=== PATIENT | male | born 1945 | race Caucasian/White ===

== ENCOUNTER 2016-10-17 13:26 | Inpatient (IN) | payer OTHER, MEDICARE ==
[2016-10-17] VITALS (7 sets, daily range): BP systolic 110–138; BP diastolic 62–80; PULSE 90–123; RESP 13–20; TEMP 97.8–99.8; O2SAT 95–100
[~2016-10-17 13:26] MED LIST: ALBU.63PRN NEB; CHLO50TA PO; CLON.1 PO; FOLI1 PO; GABA300C3 PO; GLIP10 PO; HYDR-3580 PO; LEVA1.25 IN; LISI-360 PO; NOVOLOGSS SQ; OCTR100I SQ; PROT40TA PO; SCOP1PAT TD; SERT-132 OR; SIMV20TA OR; TAB-TAB PO
--- NOTE | 2016-10-17 13:46 | PD ---
Physical Exam Date Seen by Provider: Oct 17, 2016 Time Seen by Provider: 13:44 Data Data Last Documented VS Vital Signs Date Time Temp Pulse Resp B/P Pulse Ox O2 Delivery O2 Flow Rate FiO2 10/17/16 13:28 97.8 123 13 110/71 98 MDM Supervised Visit with JOLYNN: No Narrative Course 71 YO M with complaint of RLQ pain since 4am. +N/V x "a few days." --F/C. History of Shannan fundoplication. Vitals reviewed. Seen in triage, awaiting bed placement. Ebony Modi Oct 17, 2016 13:46
[2016-10-17] MEDS ORDERED: ONDANSETRON HCL 4 MG/2 ML VIAL ONE ×2 (14:28→18:34)
[2016-10-17] MEDS ORDERED: SODIUM CHLOR 0.9% 1000 ML INJ 1,000 ML IV SCH ×3 (14:46→23:45)
[2016-10-17] MEDS ORDERED: SODIUM CHLORIDE 0.9% FLUSH 10 ML FLUSH IV FLUSH PRN ×2 (15:00→19:45)
[2016-10-17] MEDS ORDERED: PIPERACIL-TAZO 3.375 GM PREMIX 50 ML IV ONE (15:00)
[2016-10-17] MEDS ORDERED: HYDROmorphone HCL PF 1 MG/ML VIAL IV PUSH ONE (15:00)
[2016-10-17 15:23] LABS: AUTOMATED NEUTROPHIL # 8.8 TH/MM3 (1.8-7.7); BASOPHIL # 0.1 TH/MM3 (0-0.2); BASOPHIL % 0.6 % (0.0-2.0); EOSINOPHIL % 0.5 % (0.0-4.0); HEMATOCRIT 40.5 % (39.0-51.0); HEMO FLAGS DIFF FINAL; LYMPHOCYTE # 0.5 TH/MM3 (1.0-4.8); MONO % 3.4 % (0.0-8.0); NEUT % 90.5 % (16.0-70.0); PLATELET COUNT 325 TH/MM3 (150-450); RED BLOOD COUNT 4.61 MIL/MM3 (4.50-5.90); RED CELL DISTRIBUTION WIDTH 14.3 % (11.6-17.2); WHITE BLOOD COUNT 9.7 TH/MM3 (4.0-11.0)
[2016-10-17] MEDS ORDERED: MAPA325T PO (15:24)
[2016-10-17] MEDS ORDERED: GABA600T PO (15:24)
[2016-10-17] MEDS ORDERED: CHLO25TA2 PO (15:31)
[2016-10-17] MEDS ORDERED: METF500T PO (15:31)
[2016-10-17] MEDS ORDERED: NOVONP2 SQ (15:31)
[2016-10-17] MEDS ORDERED: MULT-244 PO (15:31)
[2016-10-17] MEDS ORDERED: SIMV20TA PO (15:31)
[2016-10-17] MEDS ORDERED: FOLI1TAB6 P-ARTICULR (15:31)
[2016-10-17] MEDS ORDERED: IBUP200T2 PO (15:31)
[2016-10-17] MEDS ORDERED: GLIP10TA6 PO (15:31)
[2016-10-17] MEDS ORDERED: ZOLO50TA PO (15:31)
[2016-10-17] MEDS ORDERED: PANT40TA3 PO (15:31)
[2016-10-17] MEDS ORDERED: TRAM50TA PO (15:31)
[2016-10-17] MEDS ORDERED: LISI10TA3 PO (15:31)
[2016-10-17 15:43] LABS: ALT (GPT) 44 U/L (12-78); ANION GAP 10 MEQ/L (5-15); AST (GOT) 24 U/L (15-37); BICARBONATE 23.6 MEQ/L (21.0-32.0); BLOOD UREA NITROGEN 35 MG/DL (7-18); CHLORIDE 102 MEQ/L (98-107); GLOMERULAR FILTRATION RATE 47 ML/MIN (>89); POTASSIUM 4.4 MEQ/L (3.5-5.1); SODIUM (NA) 136 MEQ/L (136-145)
[2016-10-17 15:46] LABS: ALKALINE PHOSPHATASE 107 U/L (45-117); TOTAL BILIRUBIN ADULT 0.5 MG/DL (0.2-1.0)
[2016-10-17] MEDS ORDERED: IOHEXOL 350 MG/ML 10 ML VIAL (for RAD DIAG) IV ONE (16:22)
[2016-10-17 16:32] LABS: BLOOD, URINE NEG (NEG); COMMENT (UR) CULT NOT INDICATED; CULTURE IF INDICATED CULT NOT INDICATED; GLUCOSE,URINE NEG (NEG); KETONE, URINE 10 mg/dL (NEG); NITRITE,URINE NEG (NEG); URINE COLOR YELLOW (YELLW/STRAW)
--- NOTE | 2016-10-17 17:19 | RADRPT ---
EXAM DATE/TIME: 10/17/2016 16:15 [facility] COMPARISON: CT ABDOMEN & PELVIS W CONTRAST, May 27, 2015, 6:15. CT ABDOMEN & PELVIS W/O CONTRAST, November 28, 2015, 12:51. CT ABDOMEN & PELVIS W CONTRAST, October 28, 2015, 16:55. INDICATIONS : Right side abdominal pain. IV CONTRAST: 96 cc Omnipaque 350 (iohexol) IV ORAL CONTRAST: No oral contrast ingested. RADIATION DOSE: 8.94 CTDIvol (mGy) MEDICAL HISTORY : Cardiovascular disease. Hypertension. Hernia, hiatal. SURGICAL HISTORY : Colostomy with revision, sigmoid colon removed ENCOUNTER: Initial ACUITY: 1 day PAIN SCALE: 6/10 LOCATION: Right abdomen TECHNIQUE: Volumetric scanning of the abdomen and pelvis was performed. Using automated exposure control and adjustment of the mA and/or kV according to patient size, radiation dose was kept as low as reasonably achievable to obtain optimal diagnostic quality images. FINDINGS: There does appear to be some increased density seen in the left midabdomen around sever al segments of small bowel. Some small bowel wall thickening may be present in this region. An absces s or focal fluid collection is not seen. There is a mild hiatal hernia. There is a prominent 4 cm duodenal diverticulum. The liver, spleen, p ancreas and adrenal glands are grossly normal. Both kidneys demonstrate normal enhancement. There i s a 2.3 cm mass at the lateral mid right kidney. This appears mildly larger when compared to the michael or exam. On the prior exam it measured 2 cm in diameter. It does measure 40 Hounsfield units which i s too dense for a simple cyst. No other possible renal masses are seen. There is no hydronephrosis. Atherosclerotic calcifications are seen throughout the arterial system. No aneurysm is seen. The pelvic structures appear grossly intact. There is a bowel anastomosis suture seen at the upper r ectum. There is a mild right pleural effusion. There is some accompanying subpleural increased paren chymal densities seen at the right lower lobe likely related to atelectasis or consolidation. There is some minimal increased density at the medial left base. There is degenerative change in the lumba r spine. There does appear to be fusion at the sacroiliac joints. There is prominent degenerative ch sivakumar at the left hip joint. CONCLUSION: 1. Suspected mild inflammatory change in the left midabdomen with some thickening of small bowel segm ents in this region concerning for enteritis. 2. 2.3 cm mass seen at the lateral mid right kidney. This either represents a complex cyst or potent ially a solid mass. It does appear slightly larger on the current exam. Urology consultation would b e recommended at some point. 3. Mild right pleural effusion with accompanying area of atelectasis or consolidation at the right ba se. 4. Fusion at the sacroiliac joints. 5. Degenerative change at the left hip joint. There is some milder degenerative change at the lumbar spine. 6. Mild hiatal hernia. Rambo Montemayor MD on October 17, 2016 at 16:57 Board Certified Radiologist. This report was verified electronically.
[2016-10-17] MEDS ORDERED: CIPROFLOXACIN 500 MG TAB PO ONE (17:45)
[2016-10-17] MEDS ORDERED: traMADol HCL 50 MG TAB PO ONE (17:45)
[2016-10-17] MEDS ORDERED: metroNIDAZOLE 500 MG TAB PO ONE (17:45)
[2016-10-17] MEDS ORDERED: CIPR500T2 PO (17:50)
[2016-10-17] MEDS ORDERED: METR-1 PO (17:50)
--- NOTE | 2016-10-17 17:50 | PD ---
HPI Chief Complaint: Abdominal Pain Time Seen by Provider: 14:34 Travel History International Travel<30 days: No Contact w/Intl Traveler<30days: No Traveled to known affect area: No History of Present Illness HPI This is a 71-year-old male who has a history of a Shannan fundoplication which was complicated by multiple abscesses and bowel obstructions, coming in today with right sided abdominal discomfort. He says the abdominal discomfort which started today, constant, moderate severity feeling like a fullness inside his abdomen. He has felt nauseous and threw up once this morning. He denies any loose stools. He is very worried that his abscess may have come back. PFSH Past Medical History Blood Disorders: No Anxiety: No Depression: Yes Cancer: No Cardiovascular Problems: Yes High Cholesterol: Yes Diabetes: Yes Patient Takes Glucophage: Yes Diminished Hearing: No Gastrointestinal Disorders: Yes (TAKES IMMODIUM FOR CHRONIC DIARRHEA) GERD: Yes Genitourinary: Yes Hypertension: Yes Immune Disorder: No Kidney Stones: Yes Musculoskeletal: No Neurologic: No Psychiatric: No Reproductive: No Respiratory: No Immunizations Current: No Past Surgical History Abdominal Surgery: Yes (SIGMOID COLON REMOVED W/ COLOSTOMY AND REVISION OF COLOSTOMY, 2006) Cardiac Surgery: No Ear Surgery: No Endocrine Surgery: No Eye Surgery: No Gynecologic Surgery: No Oral Surgery: No Other Surgery: Yes (barretts esopagus with hiatal hernia) Social History Alcohol Use: No ( ) Tobacco Use: No (VAPOR) Substance Use: No Allergies-Medications (Allergen,Severity, Reaction): Coded Allergies: No Known Allergies (Verified , 10/28/15) Reported Meds & Prescriptions Reported Meds & Active Scripts Active Reported Chlorthalidone 25 Mg Tab 25 Mg PO DAILY Folic Acid 1 Mg Tablet 1 Mg P-ARTICULR DAILY Glipizide 10 Mg Tab 10 Mg PO BIDAC Take 30 minutes before a meal Novolin N Inj (Insulin Human NPH) 1,000 Unit/10 Ml Vial 28 Units SQ HS Lisinopril 10 Mg Tab 10 Mg PO DAILY Pantoprazole (Pantoprazole Sodium) 40 Mg Tab 40 Mg PO BID Zoloft (Sertraline HCl) 50 Mg Tab 50 Mg PO DAILY Simvastatin 20 Mg Tab 20 Mg PO HS Metformin (Metformin HCl) 500 Mg Tab 250 Mg PO BIDPC With meals Tramadol (Tramadol HCl) 50 Mg Tab 50 Mg PO TID PRN Spectravite Senior (Multivit with Iron-Minerals) 1 Each Tablet 1 Tab PO DAILY Ibuprofen 200 Mg Tab 400 Mg PO BID PRN Gabapentin 600 Mg Tab 600 Mg PO BID Mapap (Acetaminophen) 325 Mg Tab 650 Mg PO BID Review of Systems Except as stated in HPI: all other systems reviewed are Neg Physical Exam Narrative GENERAL:Well appearing, no acute distress SKIN: Focused skin assessment warm and dry. HEAD: Atraumatic. Normocephalic. EYES: Pupils equal and round. No injection or drainage. ENT: Dry mucous members. NECK: Trachea midline. CARDIOVASCULAR: Regular rate and rhythm. No murmur appreciated. RESPIRATORY: Clear to auscultation. Breath sounds equal bilaterally. GASTROINTESTINAL: Abdomen soft, non-tender, nondistended. MUSCULOSKELETAL: No obvious deformities. NEUROLOGICAL: Awake and alert. No obvious cranial nerve deficits. Moving all extremities. PSYCHIATRIC: Appropriate mood and affect; insight and judgment normal. Data Data Last Documented VS Vital Signs Date Time Temp Pulse Resp B/P Pulse Ox O2 Delivery O2 Flow Rate FiO2 10/17/16 16:37 99.6 107 20 117/62 96 10/17/16 15:18 Room Air Orders Ondansetron Inj (Zofran Inj) (10/17/16 14:28) Complete Blood Count With Diff (10/17/16 14:46) Comprehensive Metabolic Panel (10/17/16 14:46) Lipase (10/17/16 14:46) Urinalysis - C+S If Indicated (10/17/16 14:46) Ct Abd/Pel W Iv Contrast(Rout) (10/17/16 14:46) Iv Access Insert/Monitor (10/17/16 14:46) Ecg Monitoring (10/17/16 14:46) Oximetry (10/17/16 14:46) Sodium Chlor 0.9% 1000 Ml Inj (Ns 1000 M (10/17/16 14:46) Sodium Chloride 0.9% Flush (Ns Flush) (10/17/16 15:00) Piperacil-Tazo 3.375 Gm Premix (Zosyn 3. (10/17/16 15:00) Blood Culture (10/17/16 14:46) Lactic Acid (10/17/16 14:46) Hydromorphone Pf Inj (Dilaudid Pf Inj) (10/17/16 15:00) Electrocardiogram (10/17/16 ) Iohexol 350 Inj (Omnipaque 350 Inj) (10/17/16 16:22) Chest, Single Ap (10/17/16 ) Ns (Bolus) Inj (10/17/16 17:45) Tramadol (Ultram) (10/17/16 17:45) Ciprofloxacin (Cipro) (10/17/16 17:45) Metronidazole (Flagyl) (10/17/16 17:45) Labs Laboratory Tests Test 10/17/16 10/17/16 15:06 15:55 White Blood Count 9.7 TH/MM3 Red Blood Count 4.61 MIL/MM3 Hemoglobin 13.4 GM/DL Hematocrit 40.5 % Mean Corpuscular Volume 88.0 FL Mean Corpuscular Hemoglobin 29.0 PG Mean Corpuscular Hemoglobin 33.0 % Concent Red Cell Distribution Width 14.3 % Platelet Count 325 TH/MM3 Mean Platelet Volume 9.7 FL Neutrophils (%) (Auto) 90.5 % Lymphocytes (%) (Auto) 5.0 % Monocytes (%) (Auto) 3.4 % Eosinophils (%) (Auto) 0.5 % Basophils (%) (Auto) 0.6 % Neutrophils # (Auto) 8.8 TH/MM3 Lymphocytes # (Auto) 0.5 TH/MM3 Monocytes # (Auto) 0.3 TH/MM3 Eosinophils # (Auto) 0.0 TH/MM3 Basophils # (Auto) 0.1 TH/MM3 CBC Comment DIFF FINAL Differential Comment Sodium Level 136 MEQ/L Potassium Level 4.4 MEQ/L Chloride Level 102 MEQ/L Carbon Dioxide Level 23.6 MEQ/L Anion Gap 10 MEQ/L Blood Urea Nitrogen 35 MG/DL Creatinine 1.48 MG/DL Estimat Glomerular Filtration 47 ML/MIN Rate Random Glucose 163 MG/DL Lactic Acid Level 1.0 mmol/L Calcium Level 8.8 MG/DL Total Bilirubin 0.5 MG/DL Aspartate Amino Transf 24 U/L (AST/SGOT) Alanine Aminotransferase 44 U/L (ALT/SGPT) Alkaline Phosphatase 107 U/L Total Protein 7.5 GM/DL Albumin 3.6 GM/DL Lipase 128 U/L Urine Color YELLOW Urine Turbidity CLEAR Urine pH 5.0 Urine Specific [place] 1.025 Urine Protein NEG mg/dL Urine Glucose (UA) NEG mg/dL Urine Ketones 10 mg/dL Urine Occult Blood NEG Urine Nitrite NEG Urine Bilirubin NEG Urine Urobilinogen LESS THAN 2.0 MG/DL Urine Leukocyte Esterase NEG Urine RBC 1 /hpf Urine WBC 2 /hpf Microscopic Urinalysis Comment CULT NOT INDICATED MDM Medical Decision Making Medical Screen Exam Complete: Yes Emergency Medical Condition: Yes Interpretation(s) Afebrile, mild tachycardia, normotensive No leukocytosis 90% neutrophils Renal insufficiency is slightly worse than prior CT abdomen and pelvis: Mild inflammatory change in the left mid abdomen 2.3 cm mass in the lateral right mid kidney Differential Diagnosis Abscess, bowel obstruction, appendicitis, colitis, dehydration Narrative Course This is a 71-year-old male who has a, located surgical history who presents to the emergency department reporting abdominal discomfort and vomiting for one day. On exam he appears dehydrated. Labs were obtained which demonstrate a 90 % neutrophil shift, and some renal insufficiency worse then discharged when he was in the hospital. He was given 2 L of IV hydration, cultures were obtained and he was given a dose of Zosyn. CT abdomen and pelvis is fairly unremarkable only with some mild enteritis. I had a long conversation with the family. They would like to go home although I did offer them observation for continued IV hydration. I think this is reasonable. They seem reliable and will come back if he feels worse. Patient will be discharged on ciprofloxacin and Flagyl. Diagnosis Primary Impression: Enteritis Patient Instructions: General Instructions Additional Instructions: If you develop severe or worsening abdominal pain, fever>100.4, persistent vomiting or inability to eat or drink return to the emergency department immediately. Follow up with your primary care physician in 1-2 days for a check-up. Med/Other Pt SpecificInfo: Prescription(s) given Scripts Metronidazole (Flagyl)500 Mg [id number] Mg PO BID 10 Days Prov:Kerrie Weaver MD 10/17/16 Ciprofloxacin 500 Mg [id number] Mg PO BID 10 Days Prov:Kerrie Weaver MD 10/17/16 Disposition: 01 DISCHARGE HOME Condition: Stable Kerrie Weaver MD Oct 17, 2016 17:50
--- NOTE | 2016-10-17 18:01 | RADRPT ---
EXAM DATE/TIME: 10/17/2016 16:55 [facility] COMPARISON: CHEST SINGLE AP, October 28, 2015, 19:04. INDICATIONS : Short of breath. MEDICAL HISTORY : Diabetes mellitus type II. Hypertension SURGICAL HISTORY : None. ENCOUNTER: Initial ACUITY: 1 day PAIN SCORE: 0/10 LOCATION: Bilateral chest FINDINGS: Heart size is normal. There is some minimal hazy density seen at the right base. The left lung is gr ossly clear. Significant effusion is not seen. CONCLUSION: Minimal hazy density identified at the right lateral base likely related to some mild atelectasis or consolidation. Rambo Montemayor MD on October 17, 2016 at 17:51 Board Certified Radiologist. This report was verified electronically.
[2016-10-17] MEDS ORDERED: ONDANSETRON HCL 4 MG/2 ML VIAL IV ONE (18:45)
[2016-10-17] MEDS ORDERED: ONDANSETRON HCL 4 MG/2 ML VIAL IVP PRN (19:45)
[2016-10-17] MEDS ORDERED: NALOXONE HCL 0.4 MG/ML AMP IV PRN (19:45)
[2016-10-17] MEDS ORDERED: MORPHINE SULFATE 4 MG/ML INJ IV PUSH PRN ×2 (20:45→23:45)
[2016-10-17] MEDS ORDERED: PRAVASTATIN SOD 40 MG TAB PO SCH (21:00)
[2016-10-17] MEDS: PANTOPRAZOLE SOD 40 MG DELAYED RELEASE TAB PO SCH (21:18)
[2016-10-17] MEDS: SODIUM CHLORIDE 0.9% FLUSH 10 ML FLUSH IV FLUSH SCH (21:18)
--- NOTE | 2016-10-17 23:23 | HHI.HP ---
[facility] Ad[facility] Diagnosis enteritis Diagnoses: Chief Complaint: abdominal pain Travel History International Travel<30 Days: No Contact w/Intl Traveler <30 Da: No Traveled to Known Affected Are: No History of Present Illness Written by Jena Thomason, acting as scribe for Dr. Cevallos on 10/17/16 at 23: 23. There is a pleasant 71-year-old male patient with past medical history which includes diabetes mellitus, hypertension, GERD, Moore's esophagitis.status, CHF and atrial fibrillation Patient has had a surgical history which includes Shannan fundoplication for treatment of GERD which was complicated by multiple abscesses and bowel obstructions. Patient presents to the emergency department today with complaints of abdominal pain which started 4 AM 10/17/2016. Patient reports the abdominal pain is located in the right primarily in the right proximal lower quadrant describes the pain as constant reports it was moderate severity at worst and is currently more of a mild discomfort. Patient describes the pain as a sensation of fullness inside the abdomen. Patient vomited once at home and on second time in the emergency department. Patient reports the vomitus material it's brown in color denies coffee-ground emesis or bright red blood present and emesis. He denies any loose stools, fevers, chills , SOB,chest pain, syncope, dizziness or dysuria. Review of Systems Except as stated in HPI: all other systems reviewed are Neg Past Family Social History Past Medical History Diabetes mellitus Depression GERD CHF A. fib Moore's esophagus Past Surgical History Shannan fundoplication Recent thoracentesis Multiple bowel perforation repairs Colostomy with reversal Exploratory lap, for [id number] years ago Removal of sigmoid colon Reported Medications Chlorthalidone 25 Mg Tab 25 Mg PO DAILY Folic Acid 1 Mg Tablet 1 Mg P-ARTICULR DAILY Glipizide 10 Mg Tab 10 Mg PO BIDAC Take 30 minutes before a meal Novolin N Inj (Insulin Human NPH) 1,000 Unit/10 Ml Vial 28 Units SQ HS Lisinopril 10 Mg Tab 10 Mg PO DAILY Pantoprazole (Pantoprazole Sodium) 40 Mg Tab 40 Mg PO BID Zoloft (Sertraline HCl) 50 Mg Tab 50 Mg PO DAILY Simvastatin 20 Mg Tab 20 Mg PO HS Metformin (Metformin HCl) 500 Mg Tab 250 Mg PO BIDPC With meals Tramadol (Tramadol HCl) 50 Mg Tab 50 Mg PO TID PRN Spectravite Senior (Multivit with Iron-Minerals) 1 Each Tablet 1 Tab PO DAILY Ibuprofen 200 Mg Tab 400 Mg PO BID PRN Gabapentin 600 Mg Tab 600 Mg PO BID Mapap (Acetaminophen) 325 Mg Tab 650 Mg PO BID Allergies: Coded Allergies: No Known Allergies (Verified , 10/28/15) Active Ordered Medications Current Medications Medications (Trade) Dose Ordered Sig/Irene Route Start Time Stop Time Status Last Admin (NS Flush) 2 ml UNSCH PRN IV FLUSH 10/17/16 19:45 (NS Flush) 2 ml BID IV FLUSH 10/17/16 21:00 (Zofran Inj) 4 mg Q6H PRN IVP 10/17/16 19:45 Naloxone HCl 0.4 mg 0.4 mg UNSCH PRN IV 10/17/16 19:45 Ciprofloxacin/ Dextrose 200 ml @ 200 mls/hr Q12H IV 10/18/16 06:00 (Flagyl 500 Mg Inj) 100 ml @ 100 mls/hr Q6H IV 10/18/16 00:00 (Protonix) 40 mg BID PO 10/17/16 21:00 (Pravachol) 40 mg HS PO 10/17/16 21:00 (Morphine Inj) 2 mg Q3H PRN IV PUSH 10/17/16 20:45 10/17/16 20:43 Family History Family history negative for heart disease, diabetes, CVA and cancer Social History denies ETOH use or illicit drug use denies tobacco use reports he uses vaporizer with no nicotine Physical Exam Vital Signs Vital Signs Date Time Temp Pulse Resp B/P Pulse Ox O2 Delivery O2 Flow Rate FiO2 10/17/16 21:35 106 10/17/16 20:55 99.1 109 17 138/70 95 10/17/16 20:23 99.4 90 18 135/80 100 Room Air 10/17/16 18:46 99.8 110 20 134/69 98 Room Air 10/17/16 16:37 99.6 107 20 117/62 96 10/17/16 15:18 110 20 111/62 96 Room Air 10/17/16 13:28 97.8 123 13 110/71 98 Physical Exam GENERAL: This is a well-nourished, well-developed patient, in no apparent distress. SKIN: No rashes, ecchymoses or lesions. Cool and dry. HEAD: Atraumatic. Normocephalic. No temporal or scalp tenderness. EYES: Extraocular motions intact. No scleral icterus. No injection or drainage. CARDIOVASCULAR: Regular rate and rhythm without murmurs, gallops, or rubs. RESPIRATORY: Clear to auscultation. Breath sounds equal bilaterally. No wheezes , rales, or rhonchi. GASTROINTESTINAL: Abdomen soft, tender to palpation worse RLQ, slight distended. MUSCULOSKELETAL: Extremities without clubbing, cyanosis, or edema. No joint tenderness, effusion, or edema noted. No calf tenderness. Negative Homans sign bilaterally. NEUROLOGICAL: Awake and alert. no focal deficits. Motor and sensory grossly within normal limits. Five out of 5 muscle strength in all muscle groups. Normal speech. Laboratory Laboratory Tests Test 10/17/16 10/17/16 15:06 15:55 White Blood Count 9.7 Red Blood Count 4.61 Hemoglobin 13.4 Hematocrit 40.5 Mean Corpuscular Volume 88.0 Mean Corpuscular Hemoglobin 29.0 Mean Corpuscular Hemoglobin 33.0 Concent Red Cell Distribution Width 14.3 Platelet Count 325 Mean Platelet Volume 9.7 Neutrophils (%) (Auto) 90.5 Lymphocytes (%) (Auto) 5.0 Monocytes (%) (Auto) 3.4 Eosinophils (%) (Auto) 0.5 Basophils (%) (Auto) 0.6 Neutrophils # (Auto) 8.8 Lymphocytes # (Auto) 0.5 Monocytes # (Auto) 0.3 Eosinophils # (Auto) 0.0 Basophils # (Auto) 0.1 CBC Comment DIFF FINAL Differential Comment Sodium Level 136 Potassium Level 4.4 Chloride Level 102 Carbon Dioxide Level 23.6 Anion Gap 10 Blood Urea Nitrogen 35 Creatinine 1.48 Estimat Glomerular Filtration 47 Rate Random Glucose 163 Lactic Acid Level 1.0 Calcium Level 8.8 Total Bilirubin 0.5 Aspartate Amino Transf 24 (AST/SGOT) Alanine Aminotransferase 44 (ALT/SGPT) Alkaline Phosphatase 107 Total Protein 7.5 Albumin 3.6 Lipase 128 Urine Color YELLOW Urine Turbidity CLEAR Urine pH 5.0 Urine Specific [place] 1.025 Urine Protein NEG Urine Glucose (UA) NEG Urine Ketones 10 Urine Occult Blood NEG Urine Nitrite NEG Urine Bilirubin NEG Urine Urobilinogen LESS THAN 2.0 Urine Leukocyte Esterase NEG Urine RBC 1 Urine WBC 2 Microscopic Urinalysis Comment CULT NOT INDICATED Date/Time Procedure Status Source Growth 10/17/16 15:06 Aerobic Blood Culture Received Blood Peripheral Pending 10/17/16 15:06 Anaerobic Blood Culture Received Blood Peripheral Pending Result Diagram: 10/17/16 1506 10/17/16 1506 Assessment and Plan Problem List: (1) Enteritis ICD Code: K52.9 Status: Acute (2) Kidney mass ICD Code: N28.89 Status: Acute Assessment and Plan Enteritis Abdominal pain with nausea and vomiting Unable to tolerate by mouth intake CT abdomen and pelvis with IV contrast reviewed and reveals one of suspected mild inflammatory change in the left mid abdomen and with some thickening of small bowel segments in this region concerning for enteritis. 2.3 cm mass seen at the lateral mid right kidney either represents a complex cyst or potentially a solid mass. 3 mild right pleural effusion with a common pain area of atelectasis or consolidation at the right base. supportive care IV fluid Zofran as needed for N/V Given Zosyn IV x 1 in ER Cipro and Flagyl IV- patient unable to tolerate PO Morphine IV as needed for pain Kidney mass CT abdomen and pelvis with IV contrast reviewed and reveals one of suspected mild inflammatory change in the left mid abdomen and with some thickening of small bowel segments in this region concerning for enteritis. 2.3 cm mass seen at the lateral mid right kidney either represents a complex cyst or potentially a solid mass. 3 mild right pleural effusion with a common pain area of atelectasis or consolidation at the right base. [facility]- [facility] hold oral diabetic medication accu checks ACHS with SSI HTN- chronic continue home medication with hold parameters DVT prophylaxis with SCDs discussed with ER provider, nursing and patient Physician Certification 2 Midnight Certification Type: Admission for Inpatient Services Order for Inpatient Services The services are ordered in accordance with Medicare regulations or non- Medicare payer requirements, as applicable. In the case of services not specified as inpatient-only, they are appropriately provided as inpatient services in accordance with the 2-midnight benchmark. Estimated LOS (days): 3 days is the estimated time the patient will need to remain in the hospital, assuming treatment plan goals are met and no additional complications. Post-Hospital Plan: Home Jena Thomason Oct 17, 2016 23:23
[2016-10-18] MEDS: metroNIDAZOLE 500 MG INJ 100 ML IV SCH ×2 (00:17→05:26)
[2016-10-18] MEDS ORDERED: DEXTROSE 50% IN WATER 50 ML VIAL(D50) IV PRN (00:30)
[2016-10-18] MEDS ORDERED: GLUCAGON 1 MG/ML VIAL OTHER PRN (00:30)
[2016-10-18 01:30] VITALS: BP 133/62; PULSE 99; RESP 16; TEMP 97.7; O2SAT 94
[2016-10-18 04:00] VITALS: BP 144/72; PULSE 86; RESP 16; TEMP 96.7; O2SAT 95
[2016-10-18] MEDS ORDERED: CIPROFLOXACIN 400 MG PREMIX 200 ML IV SCH (06:00)
[2016-10-18 06:38] LABS: ALKALINE PHOSPHATASE 80 U/L (45-117); ALT (GPT) 29 U/L (12-78); ANION GAP 10 MEQ/L (5-15); AST (GOT) 12 U/L (15-37); BICARBONATE 22.1 MEQ/L (21.0-32.0); BLOOD UREA NITROGEN 25 MG/DL (7-18); CHLORIDE 106 MEQ/L (98-107); GLOMERULAR FILTRATION RATE 63 ML/MIN (>89); SODIUM (NA) 138 MEQ/L (136-145); TOTAL BILIRUBIN ADULT 0.3 MG/DL (0.2-1.0)
[2016-10-18 06:43] LABS: AUTOMATED NEUTROPHIL # 3.5 TH/MM3 (1.8-7.7); EOSINOPHIL # 0.1 TH/MM3 (0-0.4); EOSINOPHIL % 1.4 % (0.0-4.0); HEMATOCRIT 31.4 % (39.0-51.0); HEMO FLAGS DIFF FINAL; LYMPH % 16.7 % (9.0-44.0); LYMPHOCYTE # 0.8 TH/MM3 (1.0-4.8); MEAN CELL VOLUME 87.8 FL (80.0-100.0); MEAN CORPUSCULAR HEMOGLOBIN 29.3 PG (27.0-34.0); MEAN CORPUSCULAR HGB CONC 33.3 % (32.0-36.0); MONO % 6.3 % (0.0-8.0); NEUT % 74.6 % (16.0-70.0); PLATELET COUNT 217 TH/MM3 (150-450); RED BLOOD COUNT 3.58 MIL/MM3 (4.50-5.90); RED CELL DISTRIBUTION WIDTH 14.1 % (11.6-17.2); WHITE BLOOD COUNT 4.6 TH/MM3 (4.0-11.0)
[2016-10-18] MEDS ORDERED: INSULIN ASPART SUPPLEMENTAL SCALE SQ SCH (07:00)
[2016-10-18 08:00] VITALS: BP 117/71; PULSE 75; RESP 18; TEMP 97.8; O2SAT 97
[2016-10-18] MEDS: PANTOPRAZOLE SOD 40 MG DELAYED RELEASE TAB PO SCH (08:41)
[2016-10-18] MEDS: SODIUM CHLORIDE 0.9% FLUSH 10 ML FLUSH IV FLUSH SCH (08:43)
[2016-10-18] MEDS ORDERED: SERTRALINE HCL 50 MG TAB PO SCH (09:00)
[2016-10-18] MEDS ORDERED: LISINOPRIL 10 MG TAB PO SCH (09:00)
[2016-10-18] MEDS ORDERED: GABAPENTIN 300 MG CAP PO SCH (09:00)
--- NOTE | 2016-10-18 10:20 | HHI.PR ---
Subjective Remarks Written by Ashtyn Guajardo, acting as scribe for Dr. Robledo on 10/18/16 at 0955. Follow up abdominal pain. Patient seen and examined, sitting up in chair comfortably. Denies any further abdominal pain or nausea or vomiting. Tolerating PO intake. Denies any recent fever, chills, cough, shortness of breath, abdominal pain, diarrhea, or dysuria. Ambulating well in room. Afebrile. Objective Vitals Vital Signs Date Time Temp Pulse Resp B/P Pulse Ox O2 Delivery O2 Flow Rate FiO2 10/18/16 08:00 97.8 75 18 117/71 97 10/18/16 04:00 96.7 86 16 144/72 95 10/18/16 01:30 97.7 99 16 133/62 94 10/17/16 21:35 106 10/17/16 20:55 99.1 109 17 138/70 95 10/17/16 20:23 99.4 90 18 135/80 100 Room Air 10/17/16 18:46 99.8 110 20 134/69 98 Room Air 10/17/16 16:37 99.6 107 20 117/62 96 10/17/16 15:18 110 20 111/62 96 Room Air 10/17/16 13:28 97.8 123 13 110/71 98 I/O 10/17/16 10/17/16 10/17/16 10/18/16 10/18/16 10/18/16 07:00 15:00 23:00 07:00 15:00 23:00 Intake Total 0 ml 700 ml Output Total 850 ml Balance 0 ml -150 ml Intake Oral 0 ml 240 ml IV Total 460 ml Output Urine Total 850 ml # Voids 1 # Bowel Movements 0 Result Diagram: 10/18/1638 10/18/16537 Objective Remarks GENERAL: This is a well-nourished, well-developed patient, sitting up in chair in no apparent distress. SKIN: No rashes, ecchymoses or lesions. Warm and dry. HEAD: Atraumatic. Normocephalic. No temporal or scalp tenderness. EYES: Extraocular motions intact. No scleral icterus. No injection or drainage. CARDIOVASCULAR: Regular rate and rhythm. No murmur appreciated. RESPIRATORY: Clear to auscultation. Breath sounds equal bilaterally. No wheezes , rales, or rhonchi. GASTROINTESTINAL: Abdomen soft, tender to palpation, much improved. MUSCULOSKELETAL: Extremities without clubbing, cyanosis, or edema. No joint tenderness, effusion, or edema noted. NEUROLOGICAL: Awake and alert. no focal deficits. Motor and sensory grossly within normal limits. Five out of 5 muscle strength in all muscle groups. Normal speech. A/P Problem List: (1) Enteritis ICD Code: K52.9 Status: Acute (2) Kidney mass ICD Code: N28.89 Status: Acute Assessment and Plan Mr. Portillo is a 71-year-old male patient with past medical history which includes diabetes mellitus, hypertension, GERD, Moore's esophagitis, CHF and atrial fibrillation who presented to the Emergency department with abdominal pain. Patient's abdominal pain was located in the right proximal lower quadrant , constant in nature, with a fullness sensation. He did have two bouts of vomiting since the abdominal pain began. Patient has had a Shannan fundoplication in the past which was complicated by multiple abscesses and bowel obstructions. CT abdomen/pelvis was performed in ER. Abdominal pain with associated nausea and vomiting, resolved Kidney mass - CT abdomen and pelvis with IV contrast reviewed and reveals one of suspected mild inflammatory change in the left mid abdomen and with some thickening of small bowel segments in this region concerning for enteritis. 2.3 cm mass seen at the lateral mid right kidney either represents a complex cyst or potentially a solid mass. 3 mild right pleural effusion with a common pain area of atelectasis or consolidation at the right base. - Supportive care - DC IVF, tolerating PO intake. - Given Zosyn IV x 1 in ER - Cipro and Flagyl IV was ordered, patient refusing administration. Upon discharge patient is refusing to take these medications. - [facility] Type 2 diabetes mellitus, chronic - held oral diabetic medication - accu checks ACHS with SSI, cover as needed Hypertension, chronic - continue home medication with hold parameters Acute kidney injury suspect secondary to dehydration, resolved - Creatinine upon admission 1.48 --> 1.15 after hydration. DVT prophylaxis: patient ambulatory and SCDs ordered. This note was transcribed by SEAN Marie. I, Dr. Jair Robledo personally performed the history, physical exam, and medical decision making; and confirmed the accuracy of the information in the transcribed note. Authenticated by Dr. Jair Robledo on 10/19/16 at 00:09. Discharge patient to home Condition on discharge: Improved Regular Diet as tolerated Ad Nel activity Rx written: None. Follow-up with primary care physician within one week, Urology within one week. Discharge Planning Discharge patient home today. Abdominal pain and n/v resolved. Tolerating PO intake. Recommended follow up with PCP and urologist in outpatient setting for incidental finding of kidney mass, patient agreeable. Ashtyn Guajardo Oct 18, 2016 10:20 Kvng Robledo DO Oct 19, 2016 00:09
--- NOTE | 2016-10-18 14:05 | EKG ---
Date Performed: 10/17/2016 Time Performed: 16:34:11 PTAGE: 71 years EKG: SINUS TACHYCARDIA RIGHT BUNDLE BRANCH BLOCK ABNORMAL ECG Compared to prior tracing no signi ficant change PREVIOUS TRACING :10/28/15 DOCTOR: Jenny Martin Interpretating Date/Time 10/18/2016 13:56:25
== END 2016-10-18 12:47 | disposition home or self-care (01) | DRG 392 ==
LOC: NEPE 13:26 → NEDA 19:16 → N06A 20:51
PROVIDERS: ADMIT Hospitalist; ATTEND Hospitalist
DX: K52.9 Noninfective gastroenteritis and colitis, unspecified (principal); N17.9 Acute kidney failure, unspecified; I48.91 Unspecified atrial fibrillation; I11.0 Hypertensive heart disease with heart failure; I50.9 Heart failure, unspecified; E11.9 Type 2 diabetes mellitus without complications; N28.89 Other specified disorders of kidney and ureter; F32.9 Major depressive disorder, single episode, unspecified; E86.0 Dehydration; K21.9 Gastro-esophageal reflux disease without esophagitis; Z79.4 Long term (current) use of insulin; Z79.84 Long term (current) use of oral hypoglycemic drugs
CPT/HCPCS: 71010; 74177; 80053; 81001; 82948; 83605; 83690; 85025; 87040; 93005; J0744; J1170; J1815; J2270; J2405; J2543; J7030; Q9967

== ENCOUNTER → 2016-12-26 | Outpatient (CLI) | payer OTHER ==
[~2016-12-26] MED LIST changes: -ALBU.63PRN NEB; +ASPE10GE TOPICAL; +CARA1SUS3 PO; +CHLO25TA2 PO; -CHLO50TA PO; -CLON.1 PO; +FERR325T8 PO; -FOLI1 PO; +FOLI1TAB6 P-ARTICULR; -GABA300C3 PO; +GABA600T PO; -GLIP10 PO; +GLIP10TA6 PO; -HYDR-3580 PO; +LACTTAB8 PO; -LEVA1.25 IN; -LISI-360 PO; +LISI10TA3 PO; +MAPA325T PO; +METF500T PO; +MULT-244 PO; +NOVOINJ6; -NOVOLOGSS SQ; +NOVONP2 SQ; -OCTR100I SQ; +PANT40TA3 PO; +POLY99.0 EACH EYE; -PROT40TA PO; -SCOP1PAT TD; -SERT-132 OR; -SIMV20TA OR; +SIMV20TA PO; -TAB-TAB PO; +TRAM50TA PO; +ZOLO50TA PO
[2016-12-26 08:14] LABS: HEMATOCRIT 35.9 % (39.0-51.0); MEAN CELL VOLUME 88.3 FL (80.0-100.0); MEAN CORPUSCULAR HEMOGLOBIN 29.4 PG (27.0-34.0); MEAN CORPUSCULAR HGB CONC 33.3 % (32.0-36.0); PLATELET COUNT 294 TH/MM3 (150-450); RED BLOOD COUNT 4.07 MIL/MM3 (4.50-5.90); REVIEW FLAG FINAL; WHITE BLOOD COUNT 8.5 TH/MM3 (4.0-11.0)
[2016-12-26 08:23] LABS: APTT (PATIENT) 28.9 SEC (24.3-30.1); PROTHROMBIN TIME - PATIENT 10.6 SEC (9.8-11.6)
== END ==
LOC: CLAB 07:46
PROVIDERS: ATTEND Urology
DX: I25.2 Old myocardial infarction (principal); N39.9 Disorder of urinary system, unspecified
CPT/HCPCS: 36415; 85027; 85610; 85730

== ENCOUNTER 2016-12-27 06:26 | Day surgery (SDC) | payer OTHER ==
[2016-12-27] VITALS (9 sets, daily range): BP systolic 104–133; BP diastolic 56–83; PULSE 64–79; RESP 16–20; TEMP 97.8–98.2; O2SAT 91–96
[~2016-12-27] VITALS: Ht 167.6 cm; Wt 76.4 kg
[~2016-12-27 06:26] MED LIST changes: -ASPE10GE TOPICAL; -CARA1SUS3 PO; -FERR325T8 PO; -LACTTAB8 PO; -NOVOINJ6; -POLY99.0 EACH EYE
[2016-12-27] MEDS ORDERED: GELATIN 12 MM/7 MM FOAM ONE (06:27)
[2016-12-27] MEDS ORDERED: NOVOINJ6 (06:49)
[2016-12-27] MEDS ORDERED: POLY99.0 EACH EYE (06:49)
[2016-12-27] MEDS ORDERED: ASPE10GE TOPICAL (06:49)
[2016-12-27] MEDS ORDERED: FERR325T8 PO (06:49)
[2016-12-27] MEDS ORDERED: LACTTAB8 PO (06:49)
[2016-12-27] MEDS ORDERED: CARA1SUS3 PO (06:49)
[2016-12-27] MEDS ORDERED: SODIUM CHLOR 0.9% 1000 ML IV SCH (07:15)
[2016-12-27] MEDS ORDERED: SODIUM CHLORIDE 2 ML FLUSH PRN IV FLUSH (07:15)
[2016-12-27] MEDS ORDERED: LIDOCAINE HCL 1% 20 ML VIAL ONE (07:58)
[2016-12-27] MEDS ORDERED: MIDAZOLAM HCL 2 MG/2 ML VIAL ONE ×2 (08:24→08:36)
[2016-12-27] MEDS ORDERED: SODIUM CHLORIDE 2 ML FLUSH BID IV FLUSH SCH (09:00)
--- NOTE | 2016-12-27 09:15 | PD.RAD ---
Post CT Procedure Prog Note Pre Procedure Diagnosis: (1) Kidney mass Post Procedure Diagnosis: (1) Kidney mass Procedure Date: Dec 27, 2016 Supervising Radiologist: Brenden Muse JR Anesthesia: Conscious Sedation Plan of Activity Patient to Unit: ROPU Patient Condition: Good See PACS Report for procedural detail/treatment Drainage Procedure Procedure 1 Imaging Guidance: CT Side: Right Biopsy Imaging Guidance: CT Side: Right Biopsy Procedure: Kidney Specimen: Core Biopsy Findings: Right renal mass biopsy. Gelfoam/thrombin utilized. No significant hemorrhage on post bx CT Jr. Micha,Brenden Scott MD Dec 27, 2016 09:15
--- NOTE | 2016-12-27 09:50 | RADRPT ---
EXAM DATE/TIME: 12/27/2016 08:28 [facility] COMPARISON: No previous studies available for comparison. INDICATIONS : Right renal mass SEDATION TIME: 20 minutes BIOPSY SITE: Right kidney MEDICATION(S): 1.) 4 mg midazolam (Versed) IV 2.) 200 mcg fentanyl (Sublimaze) IV DEVICE(S): 1.) 19 gauge introducer 2.) 20 gauge Temno core biopsy needle MEDICAL HISTORY : Cardiovascular disease. Hypertension. Hernia, hiatal. SURGICAL HISTORY : Colostomy. ENCOUNTER: Initial ACUITY: 1 day PAIN SCORE: 0/10 LOCATION: Right flank A total of four core specimen(s) were obtained and sent to the laboratory for pathologic evaluation. PROCEDURE: 1. CT guided renal biopsy. 2. Conscious sedation with continuous EKG and oximetry monitoring. 3. EKG and oximetry remained stable throughout the procedure. Prior to the procedure informed consent was obtained. Any appropriate prior imaging studies were rev iewed. Using automated exposure control and adjustment of the mA and/or kV according to patient size, radiat ion dose was kept as low as reasonably achievable to obtain optimal diagnostic quality images. DICOM format image data is available electronically for review and comparison. The site was prepped in a sterile fashion. Full sterile technique was used, including cap, mask, christelle rile gloves and gown and a large sterile sheet. Hand hygiene and 2% chlorhexidine and/or betadine/al cohol prep was utilized per protocol for cutaneous antisepsis. The skin and subcutaneous tissues wer e infiltrated with local anesthetic solution. With CT guidance the previously identified target was localized. Biopsy was performed using the presc ribed needle as above. Gelfoam and thrombin was utilized. Adequate hemostasis was obtained with comp ression at the puncture site. Follow-up CT scan reveals no significant hemorrhage. The patient tolerated the procedure well and there were no complications. The patient was returned to the Radiology Outpatient Unit in stable condition. CONCLUSION: Uncomplicated CT guided biopsy of a right renal mass. Brenden Muse Jr., MD on December 27, 2016 at 9:43 Board Certified Radiologist. This report was verified electronically.
== END 2016-12-27 13:00 | disposition home or self-care (01) ==
LOC: HRAD 06:26 → HRIP 06:33 → HRAD 13:00
PROVIDERS: ATTEND Urology
DX: D41.01 Neoplasm of uncertain behavior of right kidney (principal); I10 Essential (primary) hypertension
CPT/HCPCS: 50200; 77012; 88305; J2250; J3010; J7030; 88307

== ENCOUNTER → 2017-03-06 | Outpatient (CLI) | payer OTHER ==
[~2017-03-06] MED LIST changes: +ASPE10GE TOPICAL; +CARA1SUS3 PO; +FERR325T18 PO; -FOLI1TAB6 P-ARTICULR; +LACTTAB8 PO; +NOVOINJ6 SQ; -NOVONP2 SQ; +POLY99.0 EACH EYE
--- NOTE | 2017-03-08 12:51 | RADRPT ---
EXAM DATE/TIME: 03/06/2017 15:46 [facility] COMPARISON : No previous studies available for comparison. INDICATIONS : Evaluate outside images and clinical chart for possible cryo-ablation, renal. 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 TIME SPENT: 15 minutes Bola Barraza MD on March 08, 2017 at 12:47 Board Certified Radiologist. This report was verified electronically.
== END ==
LOC: HRAD 14:44
PROVIDERS: ATTEND Urology
DX: C64.1 Malignant neoplasm of right kidney, except renal pelvis (principal)

== ENCOUNTER 2017-03-11 13:12 | Day surgery (SDC) | payer OTHER ==
[2017-03-11 13:40] VITALS: BP 154/74; PULSE 76; RESP 18; TEMP 98.6; O2SAT 97
[2017-03-12] MEDS ORDERED: LIDOCAINE 1%/EPINEPHrine 1:100,000 SOLN 20 ML VIAL ONE (11:06)
== END 2017-03-11 15:30 | disposition home or self-care (01) ==
LOC: HROP 13:12 → HRIP 13:17 → HROP 15:30
PROVIDERS: ATTEND Urology
DX: C64.1 Malignant neoplasm of right kidney, except renal pelvis (principal)

== ENCOUNTER 2017-03-12 08:49 | Day surgery (SDC) | payer OTHER ==
[~2017-03-12] VITALS: Ht 171.4 cm; Wt 76.8 kg
[2017-03-12] MEDS ORDERED: LIDOCAINE 1%/EPINEPHrine 1:100,000 SOLN 20 ML VIAL OTHER ONE (08:50)
[2017-03-12 09:07] VITALS: BP 145/91; PULSE 69; RESP 20; TEMP 97.8; O2SAT 96
[2017-03-12] MEDS ORDERED: LACTATED RINGER'S 1000 ML IV PRN (09:30)
[2017-03-12] MEDS ORDERED: INSULIN HUMAN REGULAR 1,000 UNITS/10 ML VIAL SQ PRN (09:30)
[2017-03-12] MEDS ORDERED: SODIUM CHLOR 0.9% 1000 ML INJ 1,000 ML IV SCH (09:30)
[2017-03-12] MEDS ORDERED: CHLORHEXIDINE GLUCONATE 2 % 1 PACK (2 CLOTHS) TOPICAL PRN (09:30)
[2017-03-12] MEDS ORDERED: METOPROLOL TARTRATE 25 MG TAB PO PRN (09:30)
[2017-03-12] MEDS ORDERED: SODIUM CHLORID 0.9% 500 ML IV PRN (09:30)
[2017-03-12] MEDS ORDERED: POVIDONE IODINE 5% (ANTISEPSIS KIT) 4 APPLICATIONS EACH NARE PRN (09:30)
[2017-03-12] MEDS ORDERED: ceFAZolin 2 GM PREMIX 50 ML IV SCH (09:30)
[2017-03-12 09:59] LABS: AUTOMATED NEUTROPHIL # 5.6 TH/MM3 (1.8-7.7); BASOPHIL # 0.1 TH/MM3 (0-0.2); BASOPHIL % 0.9 % (0.0-2.0); EOSINOPHIL # 0.1 TH/MM3 (0-0.4); EOSINOPHIL % 1.9 % (0.0-4.0); HEMATOCRIT 35.7 % (39.0-51.0); HEMO FLAGS DIFF FINAL; LYMPH % 16.1 % (9.0-44.0); LYMPHOCYTE # 1.2 TH/MM3 (1.0-4.8); MEAN CELL VOLUME 86.5 FL (80.0-100.0); MEAN CORPUSCULAR HEMOGLOBIN 28.9 PG (27.0-34.0); MEAN CORPUSCULAR HGB CONC 33.5 % (32.0-36.0); MONO % 7.9 % (0.0-8.0); NEUT % 73.2 % (16.0-70.0); PLATELET COUNT 309 TH/MM3 (150-450); RED BLOOD COUNT 4.12 MIL/MM3 (4.50-5.90); RED CELL DISTRIBUTION WIDTH 14.8 % (11.6-17.2); WHITE BLOOD COUNT 7.6 TH/MM3 (4.0-11.0)
[2017-03-12 10:14] LABS: APTT (PATIENT) 28.1 SEC (24.3-30.1); PROTHROMBIN TIME - PATIENT 10.6 SEC (9.8-11.6)
[2017-03-12 10:24] LABS: BICARBONATE 28.1 MEQ/L (21.0-32.0)
--- NOTE | 2017-03-12 14:04 | PD.RAD ---
Post CT Procedure Prog Note Pre Procedure Diagnosis: (1) Kidney mass Post Procedure Diagnosis: (1) Kidney mass Procedure Date: Mar 12, 2017 Supervising Radiologist: Bola Barraza Anesthesia: General Plan of Activity Patient to Unit: PACU Patient Condition: Good See PACS Report for procedural detail/treatment Biopsy Imaging Guidance: CT Side: Right Biopsy Procedure: Kidney (cryoablation) Findings: Right renal cryoablation Bola Barraza MD Mar 12, 2017 14:04
[2017-03-12] MEDS ORDERED: DO NOT ADM ANY ANTICOAGULANT DRUGS PRN (14:25)
--- NOTE | 2017-03-12 15:19 | RADRPT ---
EXAM DATE/TIME: 03/12/2017 12:58 INDICATIONS : Right kidney lesion Anesthesia and pain control was provided by the Anesthesia department. DEVICE(S): 1.) Cryoablation probe 2.4mm MEDICAL HISTORY : Hypertension. barretts esophagus SURGICAL HISTORY : Fundoplication sigmoid colon removed ENCOUNTER: Initial ACUITY: 1 day PAIN SCORE: 0/10 LOCATION: Right Kidney PROCEDURE : 1. CT guided cryoablation. Under sterile conditions and using aseptic technique with CT guidance the mass was localized and sati sfactory approach was taken to access the lesion. Using automated exposure control and adjustment of the mA and/or kV according to patient size, radiation dose was kept as low as reasonably achievable to obtain optimal diagnostic quality images. DICOM format image data is available electronically for review and comparison. MacuCLEAR Cryoprobes were employed using percutaneous technique employing the prescribed probes. A freeze-thaw, freeze-thaw technique was employed and serial imaging demonstrated an ice ball encomp assing the entire lesion. Post procedure images demonstrate expected postoperative changes without e vidence of hematoma. CONCLUSION: Uncomplicated cryoablation as above. Bola Barraza MD on March 12, 2017 at 15:15 Board Certified Radiologist. This report was verified electronically.
[2017-03-12 15:26] VITALS: BP 149/76; PULSE 74; RESP 18; TEMP 97.7; O2SAT 95
[2017-03-12 15:48] VITALS: BP 122/69; PULSE 86; RESP 18; O2SAT 92
[2017-03-12 16:35] LABS: AUTOMATED NEUTROPHIL # 8.2 TH/MM3 (1.8-7.7); BASOPHIL % 0.3 % (0.0-2.0); EOSINOPHIL # 0.1 TH/MM3 (0-0.4); EOSINOPHIL % 0.6 % (0.0-4.0); HEMATOCRIT 35.2 % (39.0-51.0); HEMO FLAGS DIFF FINAL; LYMPH % 9.7 % (9.0-44.0); MEAN CELL VOLUME 87.9 FL (80.0-100.0); MEAN CORPUSCULAR HEMOGLOBIN 28.7 PG (27.0-34.0); MEAN CORPUSCULAR HGB CONC 32.6 % (32.0-36.0); MONO % 6.1 % (0.0-8.0); NEUT % 83.3 % (16.0-70.0); PLATELET COUNT 269 TH/MM3 (150-450); RED CELL DISTRIBUTION WIDTH 14.7 % (11.6-17.2); WHITE BLOOD COUNT 9.9 TH/MM3 (4.0-11.0)
[2017-03-12 16:48] VITALS: BP 146/74; PULSE 82; RESP 18; O2SAT 94
[2017-03-12 17:48] VITALS: BP 142/74; PULSE 83; RESP 18; O2SAT 94
== END 2017-03-12 18:03 | disposition home or self-care (01) ==
LOC: HSDC 08:49 → HRIP 08:50 → HSDC 18:03
PROVIDERS: ATTEND Urology
DX: C64.1 Malignant neoplasm of right kidney, except renal pelvis (principal); I10 Essential (primary) hypertension; K22.70 Barrett's esophagus without dysplasia; E11.9 Type 2 diabetes mellitus without complications; Z79.4 Long term (current) use of insulin
CPT/HCPCS: 00862; 50593; 77013; 80048; 82948; 85025; 85610; 85730; C2618; J0690; J7030

== ENCOUNTER 2017-03-19 13:19 | Day surgery (SDC) | payer OTHER ==
[~2017-03-19 13:19] MED LIST changes: -LACTTAB8 PO
[2017-03-19 13:37] VITALS: BP 145/77; PULSE 74; RESP 20; TEMP 98.2; O2SAT 97
--- NOTE | 2017-03-19 15:13 | RADRPT ---
EXAM DATE/TIME: 03/19/2017 13:45 [facility] COMPARISON : No previous studies available for comparison. INDICATIONS : <f/u cryo ablation<?>> OBJECTIVE: Temperature: 98.2 Heart Rate: 74 Blood Pressure: 145/77 Respiratory: 18 Oximetry: 97 HISTORY OF PRESENT ILLNESS: The patient is one week status post cryoablation of a renal cell carcinoma on the right. The patient reports no problems. Denies any significant discomfort. Reports minimal tenderness to the access site . Denies fever and chills. PAST MEDICAL HISTORY : 1. htn 2. hypercholesterol 3. constipation 4. gerd 5. crf 6. kidney stones 7. anxiety 8. barretts esophagus PAST SURGICAL HISTORY : 1. sigmoid colon removed 2. ppm SOCIAL HISTORY : No alcohol use. PHYSICAL EXAMINATION: CV: Regular rate and rhythm. Lungs: Clear to auscultation. Abdominal wall: The access site within the right flank is healing nicely. No erythema or ecchymosis. ASSESSMENT: The patient is doing well status post cryoablation therapy of a right renal cell carcinoma. I stresse d to him the importance of followup imaging for evaluation for recurrent or residual disease. I infor med him these images will be ordered by . I instructed him that if he does not have these wiliam ges performed by Dr. Schulz he should contact us to have them ordered. PLAN: Follow up with as previously described. TIME SPENT: <15 minutes Brenden Muse Jr., MD on March 19, 2017 at 15:08 Board Certified Radiologist. This report was verified electronically.
== END 2017-03-19 13:55 | disposition home or self-care (01) ==
LOC: HROP 13:19 → HRIP 13:20 → HROP 13:55
PROVIDERS: ATTEND Radiology Body Imaging
DX: N28.89 Other specified disorders of kidney and ureter (principal)